=== PATIENT | male | born 1960 | race Caucasian/White ===

== ENCOUNTER 2017-03-17 06:51 | Day surgery (SDC) | payer BC ==
[2017-03-16 10:50] VITALS: BMI 25.1
[2017-03-17] MEDS ORDERED: CEFAZOLIN/Water 2 GM/20 ML SYRINGE ONE (08:05)
[2017-03-17 08:10] LABS: #Basophils 0.1 thou/uL (0.0-0.2); #Eosinphils 0.5 thou/uL (0.0-0.7); #Lymphocytes 3.4 thou/uL (1.20-3.40); #Monocytes 0.8 thou/uL (0.11-0.59); #Neutrophils 3.7 thou/uL (1.40-6.50); %Basophils 1.3 % (0.0-1.0); %Eosinophils 5.7 % (0.0-10.0); %Lymphocytes 39.6 % (21.0-51.0); %Monocytes 9.8 % (0.0-10.0); Hematocrit 49.6 % (42.0-52.0); Mean Platelet Volume 8.1 fL (7.4-10.4); Red Blood Cell (RBC) Count 4.89 mill/uL (4.70-6.10); White Blood Cell (WBC) Count 8.6 thou/uL (4.8-10.8)
[2017-03-17] MEDS ORDERED: Diprivan 20 ML ONE (08:10)
[2017-03-17 08:31] LABS: Anion Gap 15 mmol/L (10-20); BUN (Urea Nitrogen) 18 mg/dL (8.4-25.7); Calc. Creatinine Clearance 119 mL/min (70-130); Calcium 9.6 mg/dL (7.8-10.44); Carbon Dioxide 22 mmol/L (22-29); Chloride 104 mmol/L (98-107); Estimated GFR-MDRD Greater than 90
[2017-03-17] MEDS ORDERED: Dexamethasone 20 MG/5 ML VIAL ONE (08:59)
[2017-03-17] MEDS ORDERED: Ondansetron HCl/PF 4 MG/2 ML Vial ONE (08:59)
[2017-03-17] MEDS ORDERED: Propofol 200 MG/20 ML VIAL ONE ×2 (08:59)
[2017-03-17] MEDS ORDERED: Ketorolac Tromethamine 30 MG/ML VIAL ONE (08:59)
[2017-03-17] MEDS ORDERED: Lidocaine 1% PF 5 ML VIAL ONE (08:59)
--- NOTE | 2017-03-17 11:11 | OP ---
DATE OF PROCEDURE: 03/17/2017 PREOPERATIVE DIAGNOSIS: Left knee posterior horn medial meniscus tear. POSTOPERATIVE DIAGNOSES: Left knee posterior horn medial meniscus tear. PROCEDURE PERFORMED: Left knee arthroscopy, partial medial meniscectomy. SURGEON: Ric Mary M.D. MANAGER SOCIAL WORK: None. BLOOD LOSS: Minimal. COMPLICATIONS: None. ANESTHESIA: The patient had general anesthetic as well as a local knee block. DISPOSITION: He did go to the recovery room in stable condition. INDICATIONS: A 57-year-old male who comes in complaining of catching pain and swelling in the knee. At this time, he opted to have surgery. DESCRIPTION OF PROCEDURE: After all appropriate consent forms were explained and signed, the patient was taken back to the operating room and at this time was given general anesthetic. Once local anes thesia was appropriate, the tourniquet was placed onto the left thigh and the leg was placed in an ar throscopic leg rizzo. At this time, the left lower extremity was prepped and draped in the standard surgical fashion. Limb was then exsanguinated and the tourniquet was taken up to 300 mmHg. An infe rolateral portal was established and the scope was placed into the knee joint. A needle localization technique was then used to make a medial working portal. Diagnostic arthroscopy commenced in the formerly [facility]. ACL and PCL probed and found to be intact. The medial compartment showed the cartilage to be i n pretty good condition, both on the femur and the tibia. There was a large tear including pretty mu ch the entire posterior horn of the medial meniscus and this large flap had gone and dislocated into the notch. This was sequentially removed using meniscal biter and shaver. This tissue was very hard , almost calcified, but we were able to get it back to a stable base using meniscal biter and shaver. The lateral compartment was evaluated and found to be pristine. The gutters were swept through and no loose bodies were noted in the medial or lateral gutters. The patellofemoral joint was also eval uated and found to be in excellent condition. We then went through the knee one more time making jesika e there was no remaining pieces of meniscus floating. There were none and therefore, the scope was r emoved, the knee was drained, and portals were closed with simple nylon stitch. A bulky sterile dres sing was applied and the tourniquet was let down. Toes pinked up nicely. The patient was awakened a nd taken to the recovery room in stable condition. All counts were correct at the end of the case an d he did receive preoperative IV antibiotics.
[2017-03-17] MEDS ORDERED: Lidocaine 2% w/Epinephrine 1:200K 20 ML VIAL ONE (16:11)
[2017-03-17] MEDS ORDERED: Bupivacaine HCl 0.5%/Epinephrine 1:200,000/PF 30 ml Vial ONE (16:11)
--- NOTE | 2017-03-18 07:55 | EKG ---
Test Reason : PREOP Blood Pressure : / mmHG Vent. Rate : 061 BPM Atrial Rate : 061 BPM P-R Int : 170 ms QRS Dur : 090 ms QT Int : 410 ms P-R-T Axes : 072 072 056 degrees QTc Int : 412 ms Normal sinus rhythm Normal ECG No previous ECGs available Confirmed by DR. Adrian MATOS MD ([id number]) on 03/18/2017 7:54:50 AM Referred By: IERO Confirmed By:DR. Adrian MATOS MD
== END 2017-03-17 11:15 | disposition home or self-care (01) ==
LOC: SDC 06:51
PROVIDERS: ATTEND Orthopaedic Surgery
PROC: 0SBD4ZZ Excision of Left Knee Joint, Percutaneous Endoscopic Approach (ICD-10-PCS; principal; 2017-03-17)
DX: S83.242A Other tear of medial meniscus, current injury, left knee, initial encounter (principal); I10 Essential (primary) hypertension; F17.210 Nicotine dependence, cigarettes, uncomplicated; N40.0 Benign prostatic hyperplasia without lower urinary tract symptoms; J30.2 Other seasonal allergic rhinitis; Z79.899 Other long term (current) drug therapy; Z88.2 Allergy status to sulfonamides; Z86.59 Personal history of other mental and behavioral disorders
CPT/HCPCS: 80048; 85025; 93005; 93010; G8978-GP-CI; G8979-GP-CI; G8980-GP-CI; J0670; J1100; J1885; J2001; J2405; J2704